=== PATIENT | female | born 2005 | race Caucasian/White ===

== ENCOUNTER 2023-12-25 06:56 | Day surgery (SDC) | payer BC ==
[2023-12-19 15:22] VITALS: BMI 20.7
[2023-12-25] MEDS ORDERED: Acetaminophen 500 MG TAB ONE (07:45)
[2023-12-25] MEDS ORDERED: Ketorolac Tromethamine 30 MG (1 mL) VIAL ONE (07:45)
[2023-12-25] MEDS ORDERED: Ondansetron PF 4 MG/2 ML Vial ONE (09:18)
[2023-12-25] MEDS ORDERED: Dexamethasone 4 mg/ml Vial ONE (09:18)
[2023-12-25] MEDS ORDERED: fentaNYL 50 mcg/mL 1 mL Vial ONE (09:18)
[2023-12-25] MEDS ORDERED: Lidocaine 1% PF 5 ML VIAL ONE (09:18)
[2023-12-25] MEDS ORDERED: PROPOFOL 20 ML ONE (09:18)
[2023-12-25] MEDS ORDERED: Midazolam HCl 2 mg/2 ml Vial ONE (09:18)
[2023-12-25] MEDS ORDERED: Bupivacaine/Epinephrine 0.25% 30 ML VIAL ONE (09:43)
[2023-12-25] MEDS ORDERED: CEFAZOLIN 2 GM VIAL ONE (10:00)
[2023-12-25] MEDS ORDERED: PHENYLEPHRINE-NS 100 MCG/ML 10 ML SYRINGE ONE (10:14)
== END 2023-12-25 12:00 | disposition home or self-care (01) ==
LOC: CSHSDC 06:56
PROVIDERS: ATTEND Specialist
PROC: 0H95XZX Drainage of Chest Skin, External Approach, Diagnostic (ICD-10-PCS; principal; 2023-12-25)
DX: D24.1 Benign neoplasm of right breast (principal); Z79.899 Other long term (current) drug therapy; Z98.890 Other specified postprocedural states
CPT/HCPCS: 88305; A6258; J1100; J1885; J2250; J2405; J2704; J3010